=== PATIENT | female | born 2000 | race Asian ===

== ENCOUNTER 2022-01-29 00:38 | Emergency (ER) | payer OTHER ==
[~2022-01-29] VITALS: Ht 152.4 cm; Wt 53.0 kg
[2022-01-29] MEDS ORDERED: SODIUM CHLORIDE 0.9% 1000ML BAG (SEPSIS BOLUS) IV ONE (03:45)
[2022-01-29 04:19] LABS: HEMOGLOBIN. 12.8 g/dL (12.0-16.0); MEAN CORPUSCULAR HEMOGLOBIN 28.6 pg (28.0-32.0); MEAN CORPUSCULAR VOLUME 84.7 fL (81.0-99.0); MEAN PLATELET VOLUME 8.2 fl (7.4-10.4); PLATELET 232 x1000/uL (130-400); RED BLOOD CELL COUNT 4.49 mill/uL (4.2-5.4); RED CELL DISTRIBUTION WIDTH 14.5 % (11.6-14.6)
[2022-01-29 04:42] LABS: HCG SCREEN NEGATIVE
[2022-01-29 04:43] LABS: CHLORIDE 97 mEq/L (98-107)
[2022-01-29 04:54] LABS: PLATELET ESTIMATE NORMAL
[2022-01-29] MEDS ORDERED: KETOROLAC 30MG/ML VIAL IV ONE (06:45)
[2022-01-29] MEDS ORDERED: OSEL75CA17 PO (08:38)
[2022-01-29] MEDS ORDERED: TOPUD MT (08:39)
[2022-01-29] MEDS ORDERED: ACET-2708 PO (08:39)
[2022-01-29] MEDS ORDERED: IBUP-2030 PO (08:39)
[2022-01-29 08:50] VITALS: BP 103/56
== END 2022-01-29 09:05 | disposition home or self-care (01) ==
LOC: ER 00:38
DX: J10.1 Influenza due to other identified influenza virus with other respiratory manifestations (principal); E28.2 Polycystic ovarian syndrome; Z20.822 Contact with and (suspected) exposure to COVID-19
CPT/HCPCS: 36415; 71045; 74176; 80053; 83605; 84703; 85025; 87040; 87070; 87426; 87430; 87804; 93005; 96374; 99285; C9803; J1885; J7030